=== PATIENT | male | born 1980 ===

== ENCOUNTER 2023-02-17 07:03 | Emergency (ER) | payer SELFPAY ==
[2023-02-17] MEDS ORDERED: Ibuprofen 600 MG Tab PO ONE (07:35)
== END 2023-02-17 08:54 | disposition home or self-care (01) ==
LOC: MW.ED 07:03
DX: S93.401A Sprain of unspecified ligament of right ankle, initial encounter (principal); Z88.0 Allergy status to penicillin; W22.8XXA Striking against or struck by other objects, initial encounter
CPT/HCPCS: 29515; 73590; 73610; 99283; A9270